=== PATIENT | female | born 1995 | race African-American/Black ===

== ENCOUNTER 2019-01-02 09:14 | Inpatient (IN) | payer MEDICAID ==
[~2019-01-02] VITALS: Ht 162.6 cm; Wt 62.3 kg
[2019-01-02 09:21] VITALS: Ht 162.6 cm; Wt 62.3 kg
[2019-01-02 09:22] VITALS: BP 135/63
[2019-01-02] MEDS ORDERED: PREN1TAB71 PO (09:24)
[2019-01-02] MEDS ORDERED: LACTATED RINGER'S 1,000 ML IV SCH (09:25)
[2019-01-02] MEDS ORDERED: OXYTOCIN 30 UNITS/LR 500 ML IV SCH ×2 (09:30)
[2019-01-02] MEDS ORDERED: OXYTOCIN 30 UNITS/LR 500 ML IV PRN ×2 (09:30→18:30)
[2019-01-02] MEDS ORDERED: CARBOPROST 250 MCG INJ IM PRN ×2 (09:30→18:30)
[2019-01-02] MEDS ORDERED: METHYLERGONOVINE 0.2 MG INJ IM PRN ×2 (09:30→18:30)
[2019-01-02] MEDS ORDERED: LIDOCAINE 1% (MPF) 30 ML INJ INJ PRN (09:30)
[2019-01-02] MEDS ORDERED: BUTORPHANOL 2 MG INJ IV PRN (09:30)
[2019-01-02] MEDS ORDERED: MISOPROSTOL 200 MCG TAB PR PRN ×2 (09:30→18:30)
[2019-01-02] MEDS ORDERED: IBUPROFEN 600 MG TAB PO PRN (09:30)
--- NOTE | 2019-01-02 09:32 | TRIAGE ---
OB Triage Datetime Report Generated by CPN: 01/02/2019 09:32 Datetime: 01/02/2019 09:30 Time of Arrival: 01/02/2019 09:00 EGA: 39.2 Arrived By: Ambulatory Arrived From: Home Chief Complaint: UC'S Movement: Present Contractions: Regular Time Contractions Began: 01/02/2019 04:00 Contractions: 1-3 Rupture of Membranes: Denies Vaginal Bleeding: Normal Show Vaginal Discharge: Denies Recent Sexual Intercouse: Denies Abdominal Trauma: Not Applicable Initial Plan: EFMX2, VE Datetime: 01/02/2019 09:05 Stage of : OB Triage Assessment Type: Triage Maternal Assessment Level of Consciousness: Fully Conscious DTR's/Clonus: DTRs 2+; No Clonus Headache: Denies Blurred Vision: No Respiratory Effort: Unlabored; Regular Rhythm; Equal Expansion Breath Sounds, Left: Clear and Equal Breath Sounds, Right: Clear and Equal Nausea/Vomiting: Denies RUQ Epigastric Pain: Denies Lower Extremities Edema: None Degree: None Upper Extremities Edema: None Degree: None Facial Edema: None Temperature Route: Axillary Fall Risk Assessment History of Falling: (0) No Secondary Diagnosis: (0) No Ambulatory Aid: (0) Bedrest/Nurse Assist IV Therapy: (0) No Gait: (0) Normal/Bedrest/Immobile Mental Status: (0) Oriented to Own Ability Fall Score: 0 Fall Risk Score Definition: No Risk: No action required
[2019-01-02] MEDS ORDERED: AMPICILLIN 2 GM/NS (PMX) 100 ML IVPB ONE (11:30)
--- NOTE | 2019-01-02 12:29 | PREAC ---
Date/Time of Note Date/Time of Note DATE: 01/02/19 TIME: 12:28 Anesthesia Eval and Record Evaluation Time Pre-Procedure Interview DATE: 01/02/19 TIME: 12:28 Age 24 Sex female NPO: 8 hrs Preoperative diagnosis Planned procedure labor epidural Past Medical History Past Medical History: None Surgery & Anesthesia Issues No known issue Meds Anticoagulation: No Beta Luiz within 24 hr: No Reason Beta Luiz not given: Pt. not on B-Luiz Reported Medications Vit No.130/Iron/FA ( Tablet) 1 Each Tablet, 1 EACH PO 01/02/19 Current Medications Lactated Ringer's 1,000 ml @ 125 mls/hr Q8H IV Last administered on 01/02/19at 11:26; Admin Dose 125 MLS/HR; Start 01/02/19 at 09:25 Butorphanol Tartrate (Stadol) 2 mg Q2H PRN IV .PAIN; Start 01/02/19 at 09:30 Lidocaine (Xylocaine 1% (Mpf)) 30 ml ONCE PRN INJ .EPISIOTOMY; Start 01/02/19 at 09:30 Oxytocin/Lactated Ringer's 500 ml @ 500 mls/hr ONCE POST IV ; Start 01/02/19 at 09:30 Oxytocin/Lactated Ringer's 500 ml @ 125 mls/hr POST IV ; Start 01/02/19 at 09:30 Ibuprofen (Motrin) 600 mg ONCE PRN PO .PAIN 1-5; Start 01/02/19 at 09:30 Oxytocin/Lactated Ringer's 500 ml @ 0 mls/hr ONCE PRN IV .VAGINAL BLEEDING; Start 01/02/19 at 09:30 Methylergonovine Maleate (Methergine) 0.2 mg ONCE PRN IM .VAGINAL BLEEDING; Start 01/02/19 at 09:30 Carboprost Tromethamine (Hemabate) 250 mcg ONCE PRN IM .VAGINAL BLEEDING; Start 01/02/19 at 09:30 Misoprostol (Cytotec) 1,000 mcg ONCE PRN CO .VAGINAL BLEEDING; Start 01/02/19 at 09:30 Ampicillin 100 ml @ 100 mls/hr ONCE ONCE IVPB Last administered on 01/02/19at 11:26; Admin Dose 100 MLS/HR; Start 01/02/19 at 11:30; Stop 01/02/19 at 12:29 Ampicillin 50 ml @ 100 mls/hr Q4 IVPB ; Start 01/02/19 at 13:00 Meds reviewed: Yes Allergies Uncoded Allergies: n o known drug akk (Allergy, Unknown, 01/02/19) Allergies Reviewed: Yes Labs/Studies Labs Reviewed: Reviewed by anesthesiologist Result Diagram: 01/02/19 1030 Laboratory Tests 01/02/19 10:30 Blood Bank Test 01/02/19 10:30 Antibody Screen NEGATIVE Blood Type O POSITIVE Rh Immune Globulin Candidate NO test: Positive Pre-procedure Exam Last vitals Vital Signs Date Temp Pulse Resp B/P (MAP) Pulse Ox O2 O2 Flow FiO2 Time Delivery Rate 01/02/19 98.1 135/63 09:22 (87) Airway: Adequate mouth opening, Adequate thyromental dist Mallampati: Mallampati II Teeth: Normal Lung: Normal Heart: Normal ASA Physical Status ASA physical status: 2 Emergency: None Planned Anesthetic Neuraxial: Epidural Pre-operative Attestations Prior to commencing anesthesia and surgery, the patient was re-evaluated, there was verification of: *The patient's identity *The results of appropriate recent lab work and preoperative vital signs *The above evaluation not changing prior to induction *Anesthetic plan, risk benefits, alternative and complications discussed with patient/family; questions answered; patient/family understands, accepts and wishes to proceed. NA VILLALBA Jan 02, 2019 12:29
[2019-01-02] MEDS ORDERED: DIPHENHYDRAMINE 50 MG INJ IV PRN ×2 (12:30→18:30)
[2019-01-02] MEDS ORDERED: METOCLOPRAMIDE 10 MG INJ IV PRN (12:30)
[2019-01-02] MEDS ORDERED: HYDROmorphONE 1 MG/5 ML IV SYRINGE IV PRN ×2 (12:30)
[2019-01-02] MEDS ORDERED: NALOXONE (0.4 MG/ML) INJ IV PRN (12:30)
[2019-01-02] MEDS ORDERED: ROPIVACAINE 0.2% 100ML BAG EPI SCH (12:30)
[2019-01-02] MEDS ORDERED: FENTAnyl 50 MCG/ML VIAL IV PRN ×2 (12:30)
[2019-01-02] MEDS ORDERED: ALBUTEROL 0.083% (NEB) 2.5 MG/3 ML AMP HHN PRN (12:30)
[2019-01-02] MEDS ORDERED: ONDANSETRON 4 MG INJ IV PRN ×2 (12:30→18:30)
--- NOTE | 2019-01-02 12:53 | PAC ---
Date/Time of Note Date/Time of Note DATE: 01/02/19 TIME: 12:53 Post-Anesthesia Notes Post-Anesthesia Note Last documented vital signs Vital Signs Date Temp Pulse Resp B/P (MAP) Pulse Ox O2 O2 Flow FiO2 Time Delivery Rate 01/02/19 98.1 135/63 09:22 (87) Activity: WNL Respiratory function: WNL Cardiovascular function: WNL Mental status: Baseline Pain reasonably controlled: Yes Hydration appropriate: Yes Nausea/Vomiting absent: Yes NA VILLALBA Jan 02, 2019 12:53
[2019-01-02] MEDS ORDERED: AMPICILLIN 1 GM/NS (PMX) 50 ML IVPB SCH (13:00)
[2019-01-02] MEDS ORDERED: MINERAL OIL LIGHT 10 ML VIAL TOP ONE (13:00)
[2019-01-02] MEDS ORDERED: CEFAZOLIN 2 GM/50 ML (PMX) 50 ML IVPB ONE (14:26)
[2019-01-02] MEDS ORDERED: CEFAZOLIN 2 GM/50 ML (PMX) 50 ML IVPB SCH (14:30)
[2019-01-02] MEDS ORDERED: MAGNESIUM HYDROXIDE 30ML CUP PO SCH (15:00)
[2019-01-02 17:00] VITALS: BP 132/68; PULSE 78; RESP 18
[2019-01-02 18:00] VITALS: BP 127/77; PULSE 75; RESP 18
[2019-01-02] MEDS: DEXTROSE 5%-LR 1,000 ML IV SCH (18:24)
[2019-01-02] MEDS ORDERED: ZOLPIDEM 5 MG TAB PO PRN (18:30)
[2019-01-02] MEDS ORDERED: WITCH HAZEL/GLYCERIN PAD PR PRN (18:30)
[2019-01-02] MEDS: IBUPROFEN 600 MG TAB PO SCH (18:30)
[2019-01-02] MEDS ORDERED: SENNA/DOCUSATE NA (8.6MG/50MG) TAB PO PRN (18:30)
[2019-01-02] MEDS ORDERED: BENZOCAINE 20% 56 ML SPRAY TOP PRN (18:30)
[2019-01-02] MEDS ORDERED: ACETAMINOPHEN 325 MG TAB PO PRN (18:30)
[2019-01-02] MEDS ORDERED: LANOLIN HPA 1 PKT TOP PRN (18:30)
[2019-01-02] MEDS ORDERED: OXYCODONE/ASPIRIN (4.88/325) TAB PO PRN (18:30)
[2019-01-02] MEDS: LACTATED RINGER'S 1,000 ML IV* SCH (20:05)
[2019-01-02 20:15] VITALS: BP 134/70; PULSE 84; RESP 18
--- NOTE | 2019-01-02 20:44 | HP ---
Date/Time of Note Date/Time of Note DATE: 01/02/19 TIME: 20:40 OB - History Hx of Present Free Text/Dictation 24 years old 1 with single intrauterine at 39 weeks and 2 days complaining of uterine contractions. She states good movement. She denies nausea, vomiting, shortness of breath, chest pain, headache, visual changes, vaginal bleeding or LOF. Chief Complaint: Uterine contractions Estimated Due Date: Jan 07, 2019 : 1 Care: Good Care Ultrasounds: Normal mid trimester US Obstetrical Complications: None Medical Complications: None Past Family/Social History * Past Medical, Surgical, Family and Obstetric Histories reviewed from chart. OB Admission Exam Vital Signs Vital Signs Vital Signs Date Temp Pulse Resp B/P (MAP) Pulse Ox O2 O2 Flow FiO2 Time Delivery Rate 01/02/19 98.4 75 18 127/77 Room Air 18:00 (94) Physical Exam HEENT: WNL Heart: Rhythm Normal Lungs: Clear Abdomen: WNL Extremities: Normal Cervical Dilatation: 4cm Effacement: 50% Station: -3 Membranes: Intact Heart Rate: 140's Accelerations: Accelerations Present Decelerations: No Decelerations Varibility: Moderate Contractions on Admission: < 5 Minutes Apart Intensity: Moderate Last 72 hours Lab Results CBC & BMP 01/02/19 10:30 OB Assessment/Plan Other plan: 24 years old 1 with single intrauterine at 39 weeks and 5 days - FHR: No sign of metabolic acidosis- Category I - Continuous EFM, toco - CBC, blood type and screen - Analgesia options with R/B/A discussed in detail with patient - Epidural per patient request - Please see the orders Admission, procedures, expectations, risks and possible complications have been discussed in detail with the patient. Risk of vaginal delivery including but not limited to bleeding, infection, cervical laceration, placental retention, injury to fetus, blood transfusion, blood transfusion related infection, risk of anesthesia, adhesion, cervical laceration, episiotomy/laceration, possible delivery with risk of bleeding, infection, injury to other organs (bowel, bladder, ureter, vessels, nerves), injury to fetus, blood transfusion, blood transfusion related infection, risk of anesthesia, scar and hernia formation, needs for future , removal of uterus or any other indicated surgery discussed with the patient. She expressed understanding and repeats the risks. All of her questions were answered. She signed the informed consent. PHYSICIAN'S VERIFICATION OF INFORMED CONSENT The patient was counseled regarding the procedure, its indications, risks, potential complications and alternatives and any questions were answered. Consent was obtained. PLANNED PROCEDURE/TREATMENT: Vaginal delivery, episiotomy, repair of laceration possible delivery ZAYRA LANDAVERDE Jan 02, 2019 20:44
--- NOTE | 2019-01-02 20:52 | LDN ---
Date/Time of Note Date/Time of Note DATE: 01/02/19 TIME: 20:44 Delivery Summary 24 years old 1 with single intrauterine at 39 weeks and 2 days with persistent bradycardia down to 60, vacuum delivery with risk-benefit, alternatives discussed in detail with patient. She agreed with vacuum assisted vaginal delivery. She had Thacker catheter. Median episiotomy done. A viable male delivered over third-degree vaginal laceration. Nose and mouth is suctioned, rest of body delivered. Cord clamped and cut. Baby given to the neonatology resuscitation team. 4 at 1 minutes and 9 at 5 minutes. Placenta delivered intact and spontaneously with three-vessel cord. Laceration repaired with 0 and 2-0 Vicryl. Patient tolerated procedure well. Time of delivery 13:26 Weight 7 pounds 10 ounces EBL 350 mL Weeks of Gestation 39 weeks and 2 days Assisted Vaginal Delivery: Vacuum Placenta Delivered: Spontaneously Episiotomy: Yes Indication for episiotomy To facilitate vaginal delivery Anesthesia type: Epidural Estimated blood loss: 350 Sponge & Needle done & correct: Yes All needle counts correct: Yes Any foreign bodies felt in the: No Infant Delivery Information Sex Sex: male Apgars 1 Minute: 4 5 Minute: 9 10 Minute: 10 Suctioning Nose & mouth suctioned at patrick: Yes Umbilical Cord Umbilical cord with: 3 Vessels Cord Blood was obtained: Yes Mother & Baby Disposition Disposition Mom & Baby to Maternity; Good: Yes ZAYRA LANDAVERDE Jan 02, 2019 20:52
[2019-01-02] MEDS: CEFAZOLIN 2 GM/50 ML (PMX) 50 ML IVPB SCH (22:17)
[2019-01-02] MEDS: MAGNESIUM HYDROXIDE 30ML CUP PO SCH (22:19)
[2019-01-03] MEDS: IBUPROFEN 600 MG TAB PO SCH ×5 (00:43→23:36)
[2019-01-03] MEDS: DEXTROSE 5%-LR 1,000 ML IV SCH (01:32)
[2019-01-03] MEDS: LACTATED RINGER'S 1,000 ML IV* SCH (02:24)
[2019-01-03 03:55] VITALS: BP 117/59; PULSE 80; RESP 17
[2019-01-03] MEDS: CEFAZOLIN 2 GM/50 ML (PMX) 50 ML IVPB SCH (05:43)
[2019-01-03 08:20] VITALS: BP 113/67; PULSE 67; RESP 18
--- NOTE | 2019-01-03 08:49 | DS ---
Date/Time of Note Date/Time of Note DATE: 01/03/19 TIME: 08:48 Discharge Summary Admission/Discharge Info Admit Date/Time Jan 02, 2019 at 09:25 Discharge Date/Time Discharge Diagnosis term preg Patient Condition: Stable Hospital Course unremarkable Home Meds Reported Medications Vit No.130/Iron/FA ( Tablet) 1 Each Tablet, 1 EACH PO 01/02/19 Primary Care Provider Care Physician No Primary Pending Labs Laboratory Tests Test 01/02/19 10:30 01/03/19 06:11 01/03/19 07:46 White Blood Count 6.2 14.6 10^3/ul (4.8-10.8) 10^3/ul (4.8-10.8) Red Blood Count 4.41 3.71 10^6/ul (4.20-5.40) 10^6/ul (4.20-5.40 ) Hemoglobin 12.5 10.4 g/dl (12.0-16.0) g/dl (12.0-16.0) Hematocrit 37.2 % (37.0-47.0) 31.4 % (37.0-47.0) Mean Corpuscular 84.4 84.6 Volume fl (82.0-101.0) fl (82.0-101.0) Mean Corpuscular 28.3 pg (29.0-33.0) 28.0 Hemoglobin pg (29.0-33.0) Mean Corpuscular 33.6 33.1 Hemoglobin Concent g/dl (32.0-37.0) g/dl (32.0-37.0) Red Cell 12.2 % (11.5-14.5) 12.2 % (11.5-14.5) Distribution Width Platelet Count 160 130 10^3/UL (140-415) 10^3/UL (140-415) Mean Platelet 12.5 fl (7.4-10.4) 12.5 fl (7.4-10.4) Volume Immature 0.200 0.300 Granulocytes % % (0.001-0.429) % (0.001-0.429) Neutrophils % 74.8 % (39.0-77.0) 78.8 % (39.0-77.0) Lymphocytes % 12.8 % (15.0-51.0) 7.3 % (15.0-51.0) Monocytes % 11.2 % (0.0-11.0) 13.2 % (0.0-11.0) Eosinophils % 0.8 % (0.0-7.0) 0.2 % (0.0-7.0) Basophils % 0.2 % (0.0-2.0) 0.2 % (0.0-2.0) Nucleated Red Blood 0.0 0.0 Cells % /100WBC (0.0-0.0) /100WBC (0.0-0.0) Immature 0.010 0.050 Granulocytes # 10^3/ul (0.0-0.031) 10^3/ul (0.0-0.031 ) Neutrophils # 4.6 11.5 10^3/ul (1.6-7.5) 10^3/ul (1.6-7.5) Lymphocytes # 0.8 1.1 10^3/ul (0.8-2.9) 10^3/ul (0.8-2.9) Monocytes # 0.7 1.9 10^3/ul (0.3-0.9) 10^3/ul (0.3-0.9) Eosinophils # 0.1 0.0 10^3/ul (0.0-0.5) 10^3/ul (0.0-0.5) Basophils # 0.0 0.0 10^3/ul (0.0-0.1) 10^3/ul (0.0-0.1) Nucleated Red Blood 0.0 0.0 Cells # 10^3/ul (0.0-0.0) 10^3/ul (0.0-0.0) Prothrombin Time 12.8 Sec (11.9-14.9) Prothrombin Time 1.0 Ratio INR International 0.95 Normalized Ratio Activated 30.7 Partial Thromboplas Sec (23.0-35.0) t Time Rapid Plasma NONREACTIVE (NR) [facility] Lab Scanned Report [facility] [id number] FANTASMA FRANCIS MD Jan 03, 2019 08:49
--- NOTE | 2019-01-03 08:50 | PD.PPDC ---
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
[2019-01-03] MEDS: MAGNESIUM HYDROXIDE 30ML CUP PO SCH (08:58)
[2019-01-03 12:15] VITALS: BP 102/64; PULSE 76; RESP 18
[2019-01-03 16:04] VITALS: BP 114/56; PULSE 89; RESP 20
[2019-01-03 20:15] VITALS: BP 103/59; PULSE 79; RESP 18
[2019-01-04 04:00] VITALS: BP 112/56; PULSE 64; RESP 17
[2019-01-04] MEDS: IBUPROFEN 600 MG TAB PO SCH ×2 (05:35→11:32)
[2019-01-04] MEDS: MAGNESIUM HYDROXIDE 30ML CUP PO SCH (08:12)
[2019-01-04 08:15] VITALS: BP 117/57; PULSE 83; RESP 18
[2019-01-04] MEDS ORDERED: MEASLES,MUMPS,RUBELLA VACCINE INJ SC* ONE (09:00)
[2019-01-04] MEDS ORDERED: DIPHTH/TET/ACEL PERTUSS (ADULT) 0.5 ML VIAL IM* ONE (09:00)
== END 2019-01-04 13:46 | disposition home or self-care (01) | DRG 998 ==
LOC: OBT 09:14 → L-D 09:15 → OBT 09:25 → L-D 09:25 → PP1 16:36
PROVIDERS: ADMIT Obstetrics & Gynecology; ATTEND Obstetrics & Gynecology
PROC: 10D07Z6 Extraction of Products of Conception, Vacuum, Via Natural or Artificial Opening (ICD-10-PCS; principal; 2019-01-02)
PROC: 3E033VJ Introduction of Other Hormone into Peripheral Vein, Percutaneous Approach (ICD-10-PCS; 2019-01-02)
DX: O76 Abnormality in fetal heart rate and rhythm complicating labor and delivery (principal); O66.5 Attempted application of vacuum extractor and forceps; Z3A.39 39 weeks gestation of pregnancy
CPT/HCPCS: 62319; 85025; 85610; 85730; 86592; 86850; 86900; 86901; 99464; G0463; J0290; J0595; J0690; J2590; J7120; J7121